=== PATIENT | female | born 1995 | race Caucasian/White ===

== ENCOUNTER → 2016-07-12 | Outpatient (CLI) | payer OTHER ==
[~2016-07-12] MED LIST: AMOXICILLIN500 MG PO; HYCODAN/HYDROMET5 ML PO; PREDNISONE10 MG PO; PROVENTIL0.09 MG/A1 INH
[2016-07-12 10:22] LABS: BASO % 0.4 % (0.0-1.0); EOS # 0.1 10*3/uL (0.0-0.4); EOS % 1.6 % (1.0-4.0); HEMATOCRIT 40.8 % (37.0-47.0); HEMOGLOBIN 13.7 g/dl (12.0-16.0); LYMPH # 2.1 10*3/uL (1.3-4.4); MEAN CELL VOLUME 91.1 fl (81.0-99.0); MEAN CORPUSCULAR HGB 30.6 pg (27.0-31.0); MEAN CORPUSCULAR HGB CONC 33.6 g/dl (33.0-37.0); MEAN PLATELET VOLUME 10.1 fl (9.6-12.3); MONO # 0.3 10*3/uL (0.1-1.0); MONO % 6.4 % (3.0-9.0); NEUT # 2.7 10*3/uL (2.3-7.9); NEUT % 51.4 % (47.0-73.0); PLATELET COUNT AUTOMATED 272 10*3/uL (130-400); RED BLOOD COUNT 4.48 10*6/uL (4.10-5.10); RED CELL DISTRI WIDTH 12.4 % (0-14.5); WHITE BLOOD COUNT 5.2 10*3/uL (4.8-10.8)
[2016-07-12 10:50] LABS: ALBUMIN 4.2 gm/dl (3.1-4.5); ALKALINE PHOSPHATASE 56 U/L (45-117); BILIRUBIN, TOTAL 0.5 mg/dl (0.2-1.0); BUN 12 mg/dl (7-24); CARBON DIOXIDE 28 mmol/L (21-32); CHLORIDE 108 mmol/L (98-107); CHOLESTEROL 175 mg/dL (<200); EST GLOM FILT AFRICAN AMERICAN > 60 ml/min; GLUCOSE 85 mg/dL (65-99); HDL CHOLESTEROL 58 mg/dl (40-60); LDL CHOLESTEROL 106 mg/dL (9-159); POTASSIUM 4.1 mmol/L (3.5-5.1); SGOT/AST 16 IU/L (3-35); SGPT/ALT 19 U/L (12-78); SODIUM 142 mmol/L (136-145); TOTAL PROTEIN 7.2 gm/dL (6.4-8.2); TRIGLYCERIDES 53 mg/dl (<150); VLDL CHOLESTEROL 11 mg/dL (6-40)
== END | disposition home or self-care (01) ==
LOC: LAB 10:05
PROVIDERS: Physician Assistant Medical
DX: Z13.220 Encounter for screening for lipoid disorders (principal); R53.83 Other fatigue

== ENCOUNTER → 2017-08-08 | Outpatient (CLI) | payer OTHER | END | disposition home or self-care (01) | LOC: CARD 07-31 07:30 | DX: Z34.92 Encounter for supervision of normal pregnancy, unspecified, second trimester (principal); R00.2 Palpitations; R06.02 Shortness of breath; F17.200 Nicotine dependence, unspecified, uncomplicated; Z3A.28 28 weeks gestation of pregnancy ==

== ENCOUNTER 2017-11-19 12:49 | Emergency (ER) | payer OTHER ==
[~2017-11-19] VITALS: Ht 152.4 cm; Wt 58.5 kg
[2017-11-19 12:55] VITALS: BP 101/88
[2017-11-19 13:28] LABS: BASO % 0.3 % (0.0-1.0); EOS # 0.1 10*3/uL (0.0-0.4); EOS % 2.8 % (1.0-4.0); HEMATOCRIT 40.7 % (37.0-47.0); HEMOGLOBIN 13.5 g/dl (12.0-16.0); LYMPH # 1.8 10*3/uL (1.3-4.4); LYMPH % 45.3 % (27.0-41.0); MEAN CELL VOLUME 92.7 fl (81.0-99.0); MEAN CORPUSCULAR HGB 30.8 pg (27.0-31.0); MEAN CORPUSCULAR HGB CONC 33.2 g/dl (33.0-37.0); MEAN PLATELET VOLUME 10.1 fl (9.6-12.3); MONO # 0.2 10*3/uL (0.1-1.0); MONO % 5.8 % (3.0-9.0); NEUT # 1.8 10*3/uL (2.3-7.9); NEUT % 45.5 % (47.0-73.0); PLATELET COUNT AUTOMATED 225 10*3/uL (130-400); RED BLOOD COUNT 4.39 10*6/uL (4.10-5.10); RED CELL DISTRI WIDTH 12.9 % (0-14.5)
[2017-11-19 13:46] LABS: ALBUMIN 3.9 gm/dl (3.1-4.5); ALKALINE PHOSPHATASE 283 U/L (45-117); BUN 10 mg/dl (7-24); CHLORIDE 108 mmol/L (98-107); CREATININE 0.79 mg/dL (0.55-1.02); POTASSIUM 4.3 mmol/L (3.5-5.1); SGOT/AST 113 IU/L (3-35); SGPT/ALT 300 U/L (12-78); SODIUM 141 mmol/L (136-145); TOTAL PROTEIN 7.3 gm/dL (6.4-8.2)
== END 2017-11-19 16:35 | disposition home or self-care (01) ==
LOC: ED 12:49
PROVIDERS: Emergency Medicine
DX: O90.89 Other complications of the puerperium, not elsewhere classified (principal); M79.1 Myalgia; R07.9 Chest pain, unspecified; O99.335 Smoking (tobacco) complicating the puerperium

== ENCOUNTER → 2017-12-18 | Outpatient (CLI) | payer OTHER ==
[~2017-12-18] MED LIST changes: +HYDROCODONE-AC1 EAC1 PO; +Zofran4 MG PO
== END | disposition home or self-care (01) ==
LOC: US 16:49
DX: K80.20 Calculus of gallbladder without cholecystitis without obstruction (principal); R11.0 Nausea

== ENCOUNTER 2018-01-14 16:30 | Emergency (ER) | payer OTHER ==
[~2018-01-14] VITALS: Ht 152.4 cm; Wt 59.0 kg
[~2018-01-14 16:30] MED LIST changes: -HYDROCODONE-AC1 EAC1 PO; -Zofran4 MG PO
[2018-01-14 16:38] VITALS: BP 122/60
[2018-01-14 17:49] LABS: BILIRUBIN 2+ (NEGATIVE); BLOOD NEGATIVE (NEGATIVE); CLARITY CLEAR (CLEAR); COLOR YELLOW (YELLOW); GLUCOSE NEGATIVE (NEGATIVE); KETONE NEGATIVE (NEGATIVE); LEUKO ESTERASE NEGATIVE (NEGATIVE); NITRITE NEGATIVE (NEGATIVE); PH 6.5 (5.0-9.0); SPECIFIC GRAVITY <= 1.005 (1.005-1.030); UROBILINOGEN 0.2 E.U./dl (0.2-1.0)
[2018-01-14 18:14] LABS: BACTERIA TRACE; EPITHELIAL CELLS 51-100
[2018-01-14 18:15] LABS: RBC 0-2 rbc/hpf (0-2); WBC 0-2 wbc/hpf (0-5)
[2018-01-14 19:29] LABS: BASO % 0.4 % (0.0-1.0); EOS # 0.1 10*3/uL (0.0-0.4); EOS % 1.2 % (1.0-4.0); HEMATOCRIT 37.8 % (37.0-47.0); HEMOGLOBIN 12.7 g/dl (12.0-16.0); LYMPH # 1.6 10*3/uL (1.3-4.4); MEAN CORPUSCULAR HGB 30.2 pg (27.0-31.0); MEAN CORPUSCULAR HGB CONC 33.6 g/dl (33.0-37.0); MEAN PLATELET VOLUME 10.1 fl (9.6-12.3); MONO # 0.4 10*3/uL (0.1-1.0); MONO % 7.2 % (3.0-9.0); PLATELET COUNT AUTOMATED 252 10*3/uL (130-400); RED CELL DISTRI WIDTH 12.8 % (0-14.5)
[2018-01-14 19:44] LABS: ALBUMIN 3.7 gm/dl (3.1-4.5); ALKALINE PHOSPHATASE 288 U/L (45-117); BUN 11 mg/dl (7-24); CHLORIDE 105 mmol/L (98-107); CREATININE 0.71 mg/dL (0.55-1.02); POTASSIUM 3.6 mmol/L (3.5-5.1); SGOT/AST 405 IU/L (3-35); SGPT/ALT 638 U/L (12-78); SODIUM 139 mmol/L (136-145); TOTAL PROTEIN 7.2 gm/dL (6.4-8.2)
[2018-01-14] MEDS ORDERED: Zofran4 MG PO (20:33)
== END 2018-01-14 21:10 | disposition home or self-care (01) ==
LOC: ED 16:30
PROVIDERS: Nurse Practitioner
DX: K81.9 Cholecystitis, unspecified (principal); R11.2 Nausea with vomiting, unspecified; F17.200 Nicotine dependence, unspecified, uncomplicated; Z79.899 Other long term (current) drug therapy

== ENCOUNTER 2018-01-20 07:02 | Inpatient (IN) | payer OTHER ==
[2018-01-15 12:04] LABS: BASO % 0.2 % (0.0-1.0); EOS # 0.1 10*3/uL (0.0-0.4); HEMATOCRIT 37.2 % (37.0-47.0); HEMOGLOBIN 12.5 g/dl (12.0-16.0); LYMPH # 1.7 10*3/uL (1.3-4.4); LYMPH % 28.4 % (27.0-41.0); MEAN CELL VOLUME 90.5 fl (81.0-99.0); MEAN CORPUSCULAR HGB 30.4 pg (27.0-31.0); MEAN CORPUSCULAR HGB CONC 33.6 g/dl (33.0-37.0); MEAN PLATELET VOLUME 10.4 fl (9.6-12.3); MONO # 0.3 10*3/uL (0.1-1.0); MONO % 5.1 % (3.0-9.0); NEUT # 3.8 10*3/uL (2.3-7.9); NEUT % 65.1 % (47.0-73.0); PLATELET COUNT AUTOMATED 275 10*3/uL (130-400); RED BLOOD COUNT 4.11 10*6/uL (4.10-5.10); RED CELL DISTRI WIDTH 12.9 % (0-14.5); WHITE BLOOD COUNT 5.9 10*3/uL (4.8-10.8)
[2018-01-20] VITALS (10 sets, daily range): BP systolic 112–126; BP diastolic 53–77
[~2018-01-20] VITALS: Ht 152.4 cm; Wt 58.1 kg
--- NOTE | ~2018-01-20 | O ---
[place], [place] OPERATIVE NOTE NAME: NICOLE FISHER UNIT #: [id number] ROOM: 404 DOCTOR: APRYL DAVIS MD BIRTHDATE: [birth year] DOS: 01/20/2018 PREOPERATIVE DIAGNOSES: Cholelithiasis, symptomatic colic, newly-elevated liver function test. POSTOPERATIVE DIAGNOSES: Cholelithiasis, symptomatic colic, newly-elevated liver function test. PROCEDURE: Laparoscopic cholecystectomy and intraoperative cholangiogram. SURGEON: Apryl Davis MD ANESTHESIA: General and local 0.5% Marcaine plain x 12 mL. INDICATIONS: This is a 22-year-old young lady presented to the office with symptomatic biliary colic, who is for elective cholecystectomy this morning. She had come for preadmission testing on 01/16/2018 and had blood work drawn, which showed liver function tests with marked elevation, with the patient having had no clinical jaundice, but having a normal bilirubin, but elevated liver function test and the AST in the 400s and alkaline phosphatase elevated as well. She subsequently had been seen in the Emergency Room on 01/14/2018 and has had an attack of colic, because of this, clinically, it was felt that she may have likely passed a stone. Her bilirubin on the 01/14/2018 was 3 with ALT 638, AST 405 and alkaline phosphatase 288. These have come down this morning to normal of bilirubin 0.5, AST of 27, ALT of 154 and alkaline phosphatase is 266. She had actually had slightly elevated liver function test in November 2017 as well with normal bilirubin, though this was not seen. She was seem to have multiple stones on ultrasound imaging and had had a normal sized common bile duct with no pericholecystic or wall thickening on ultrasound done roughly a month ago, at the time of her initial symptomatic onset. She had had some symptomatic complaints during and this was her first workup. was a term with delivery approximately 3 months ago. The patient is now for cholecystectomy today for symptomatic relief. Having discussed with the patient preoperatively with Dr. Galaviz and for possible ERCP postoperatively if cholangiogram so dictates. Risks, benefits, possible complications were discussed with the patient in the office at the bedside in preop area at length as well as discussing with her on Saturday the , when her liver function test had come back abnormal while was in preadmission testing area and the nurses gave me these result. All of her questions have been answered at length and she agrees to the informed consent. DESCRIPTION OF PROCEDURE: The patient was brought to the operating suite. She was placed on the table in supine position and adequate conscious sedation and general anesthetic was induced by the anesthesia staff. The abdomen was prepped and draped in a usual sterile fashion including placement of Cabrera catheter, orogastric [place] sump for bladder and gastric decompression. The abdomen was entered through a small infraumbilical incision carried bluntly to the rectus fascia. This was then cannulated with a Veress needle in the usual fashion. Intraperitoneal placement was confirmed and adequate pneumoperitoneum was created without difficulty. The abdomen was then cannulated with 5 mm bladeless [place], [place] OPERATIVE NOTE NAME: NICOLE FISHER UNIT #: [id number] ROOM: [facility] DOCTOR: APRYL DAVIS MD BIRTHDATE: [birth year] XL trocar with 0-degree laparoscope within. Intraperitoneal placement was confirmed. The patient was seen to have minimal adhesions in the gallbladder, but grossly appeared to have some dilation of the common bile duct, which was easily seen when lifting the liver after placing subxiphoid trocar through a second stab incision, under local anesthetic. The gallbladder was lifted and retracted upwards. Two right flank trocar was then placed in similar fashion under local anesthetic, infiltrated block through 5 mm stab incisions. The gallbladder was then elevated with the liver and retracted laterally. Dissection ensued in the triangle of Calot was easily skeletonized with clear view of the critical view of the cystic duct and the triangle of Calot. Attention was then directed to cholangiography. Fluoro cholangiography was performed with the patient in reverse Trendelenburg and slightly rotated away from the boiling tub operator on the patient's left side. Fluoro cholangiography shows the gallbladder to fill and the common bile duct to fill, but in spite of no obvious filling defects, it tapers nicely, but does not flow into the duodenum. Given that during dissection, it seems that the patient has multiple tiny stones and sediments, it is suspected that she may have passed a stone, especially given her previous episode of jaundice and elevated liver function tests. With this done, the gallbladder was decompressed and retracted and then the cystic duct divided between clips and incised and controlled at the cystic duct stump with an Endoloop of 3-0 Vicryl as well. Further dissection ensued and the cystic artery was isolated and divided between clips as well. The gallbladder was then skeletonized from the liver bed through a fairly tedious protracted dissection as it was somewhat intrahepatic. Once this was freed from the liver bed, it was placed in Endopouch specimen bag, having upsized the subxiphoid trocar to a 12 mm port site. There were multiple small stones spilled and these were collected postoperatively using a stone scoop inside the patient prior to including these with the specimen. The liver bed was inspected for hemostasis and this was treated with Marv topically. Drain was placed through one of the upper right flank trocar sites and placed under the liver to the subhepatic space. It was secured with 3-0 nylon in the skin. No further pathology. Pneumoperitoneum was released and the specimen removed in the Endopouch bag through the subxiphoid trocar site. Fascia here was closed with a [id number] suture of 2-0 PDS. Then, pneumoperitoneum was released and suctioned out. A drain was placed to gravity drainage. The skin incision was then closed with 5-0 Monocryl and Duramax. She was allowed to awaken in the room and extubated without difficulty. The patient tolerated the procedure well. She went to recovery in satisfactory condition. All sponge, needle and instrument counts correct at the end of the procedure. She received antibiotic prophylaxis preoperatively and had compression devices to lower extremities for DVT prophylaxis. We will keep her overnight and I had already discussed possible ERCP with Dr. Galaviz, we will notify him of consultation. [place], [place] OPERATIVE NOTE NAME: NICOLE FISHER UNIT #: [id number] ROOM: 404 DOCTOR: APRYL DAVIS MD BIRTHDATE: [birth year] APRYL DAVIS MD CM:OPRECORD:OPERATIVE NOTE 1430 [id number] ARJUN DAVIS MD 01/20/18 1545 interface
[~2018-01-20 07:02] MED LIST changes: +Zofran4 MG PO
[2018-01-20 07:24] LABS: BASO % 0.4 % (0.0-1.0); EOS # 0.1 10*3/uL (0.0-0.4); EOS % 1.4 % (1.0-4.0); HEMOGLOBIN 12.8 g/dl (12.0-16.0); LYMPH # 1.6 10*3/uL (1.3-4.4); LYMPH % 32.2 % (27.0-41.0); MEAN CELL VOLUME 91.3 fl (81.0-99.0); MEAN CORPUSCULAR HGB 30.8 pg (27.0-31.0); MEAN CORPUSCULAR HGB CONC 33.7 g/dl (33.0-37.0); MEAN PLATELET VOLUME 9.8 fl (9.6-12.3); MONO # 0.3 10*3/uL (0.1-1.0); MONO % 6.7 % (3.0-9.0); NEUT % 59.1 % (47.0-73.0); PLATELET COUNT AUTOMATED 322 10*3/uL (130-400); RED BLOOD COUNT 4.16 10*6/uL (4.10-5.10); RED CELL DISTRI WIDTH 12.7 % (0-14.5); WHITE BLOOD COUNT 5.1 10*3/uL (4.8-10.8)
[2018-01-20 07:38] LABS: ALBUMIN 3.8 gm/dl (3.1-4.5); ALKALINE PHOSPHATASE 266 U/L (45-117); BUN 10 mg/dl (7-24); CHLORIDE 107 mmol/L (98-107); CREATININE 0.79 mg/dL (0.55-1.02); POTASSIUM 3.8 mmol/L (3.5-5.1); SGOT/AST 27 IU/L (3-35); SGPT/ALT 154 U/L (12-78); SODIUM 141 mmol/L (136-145); TOTAL PROTEIN 7.3 gm/dL (6.4-8.2)
[2018-01-21] VITALS: BP 110/64
[2018-01-21 04:00] VITALS: BP 102/60
[2018-01-21 07:04] LABS: BILIRUBIN, DIRECT 0.2 mg/dL (0.0-0.2); TOTAL PROTEIN 5.5 gm/dL (6.4-8.2)
[2018-01-21 08:00] VITALS: BP 103/52
[2018-01-21 12:00] VITALS: BP 108/58
[2018-01-21] MEDS ORDERED: HYDROCODONE-AC1 EAC1 PO (12:49)
== END 2018-01-21 13:55 | disposition home or self-care (01) | DRG 419 ==
LOC: SDC 07:02 → 4E 09:55
PROVIDERS: Internal Medicine Gastroenterology
DX: K80.10 Calculus of gallbladder with chronic cholecystitis without obstruction (principal); G89.18 Other acute postprocedural pain; R74.0 Nonspecific elevation of levels of transaminase and lactic acid dehydrogenase [LDH]; F17.200 Nicotine dependence, unspecified, uncomplicated; Z71.6 Tobacco abuse counseling; Z98.891 History of uterine scar from previous surgery; Z79.899 Other long term (current) drug therapy; Z79.51 Long term (current) use of inhaled steroids

== ENCOUNTER → 2019-01-14 | Outpatient (CLI) | payer OTHER ==
[~2019-01-14] MED LIST changes: +HYDROCODONE-AC1 EAC1 PO
== END | disposition home or self-care (01) ==
LOC: US 15:00
DX: Z34.81 Encounter for supervision of other normal pregnancy, first trimester (principal); Z3A.01 Less than 8 weeks gestation of pregnancy

== ENCOUNTER → 2019-02-11 | Outpatient (CLI) | payer OTHER | END | disposition home or self-care (01) | LOC: US 12:57 | DX: Z34.81 Encounter for supervision of other normal pregnancy, first trimester (principal); Z3A.01 Less than 8 weeks gestation of pregnancy ==

== ENCOUNTER → 2019-02-23 | Outpatient (CLI) | payer OTHER | END | disposition home or self-care (01) | LOC: LAB 16:25 | DX: N93.9 Abnormal uterine and vaginal bleeding, unspecified (principal) ==

== ENCOUNTER → 2019-03-02 | Outpatient (CLI) | payer OTHER | END | disposition home or self-care (01) | LOC: LAB 15:50 | DX: O08.89 Other complications following an ectopic and molar pregnancy (principal); Z3A.14 14 weeks gestation of pregnancy ==

== ENCOUNTER → 2019-03-09 | Outpatient (CLI) | payer OTHER | END | disposition home or self-care (01) | LOC: LAB 17:36 | DX: O08.89 Other complications following an ectopic and molar pregnancy (principal) ==

== ENCOUNTER → 2019-03-16 | Outpatient (CLI) | payer OTHER | LOC: LAB 15:50 | DX: O08.89 Other complications following an ectopic and molar pregnancy (principal) ==

== ENCOUNTER → 2019-03-23 | Outpatient (CLI) | payer BC, OTHER | END | disposition home or self-care (01) | LOC: LAB 17:28 | DX: O08.89 Other complications following an ectopic and molar pregnancy (principal) ==

== ENCOUNTER → 2019-03-30 | Outpatient (CLI) | payer BC, OTHER | END | disposition home or self-care (01) | LOC: LAB 16:51 | DX: O08.89 Other complications following an ectopic and molar pregnancy (principal) ==

== ENCOUNTER → 2019-04-06 | Outpatient (CLI) | payer BC, OTHER | END | disposition home or self-care (01) | LOC: LAB 16:41 | DX: O08.89 Other complications following an ectopic and molar pregnancy (principal) ==

== ENCOUNTER → 2019-05-08 | Outpatient (CLI) | payer BC, OTHER | END | disposition home or self-care (01) | LOC: LAB 16:23 | DX: O08.89 Other complications following an ectopic and molar pregnancy (principal) ==

== ENCOUNTER → 2019-09-24 | Outpatient (CLI) | payer BC, OTHER | END | disposition home or self-care (01) | LOC: US 16:20 | DX: O02.81 Inappropriate change in quantitative human chorionic gonadotropin (hCG) in early pregnancy (principal); Z3A.01 Less than 8 weeks gestation of pregnancy ==

== ENCOUNTER → 2019-10-01 | Outpatient (CLI) | payer BC, OTHER | END | disposition home or self-care (01) | LOC: US 11:30 | DX: N93.9 Abnormal uterine and vaginal bleeding, unspecified (principal) ==

== ENCOUNTER → 2019-10-08 | Outpatient (CLI) | payer BC, OTHER | END | disposition home or self-care (01) | LOC: US 10-05 09:00 | DX: Z34.81 Encounter for supervision of other normal pregnancy, first trimester (principal); Z3A.01 Less than 8 weeks gestation of pregnancy ==

== ENCOUNTER → 2019-11-09 | Outpatient (CLI) | payer BC, OTHER ==
[2019-11-09 17:08] LABS: BASO % 0.2 % (0.0-1.0); EOS # 0.1 10*3/uL (0.0-0.4); EOS % 0.6 % (1.0-4.0); HEMATOCRIT 37.5 % (37.0-47.0); LYMPH # 2.3 10*3/uL (1.3-4.4); LYMPH % 22.5 % (27.0-41.0); MEAN CORPUSCULAR HGB 30.3 pg (27.0-31.0); MEAN CORPUSCULAR HGB CONC 33.3 g/dl (33.0-37.0); MEAN PLATELET VOLUME 9.9 fl (9.6-12.3); MONO # 0.4 10*3/uL (0.1-1.0); MONO % 4.1 % (3.0-9.0); NEUT # 7.4 10*3/uL (2.3-7.9); NEUT % 72.2 % (47.0-73.0); PLATELET COUNT AUTOMATED 310 10*3/uL (130-400); RED BLOOD COUNT 4.12 10*6/uL (4.10-5.10); RED CELL DISTRI WIDTH 12.6 % (0-14.5); WHITE BLOOD COUNT 10.2 10*3/uL (4.8-10.8)
[2019-11-09 17:24] LABS: URINE AMPHETAMINES < 1000 (1000ng/ml); URINE BARBITURATES < 200 (200ng/ml); URINE BENZODIAZEPINES < 200 (200ng/ml); URINE CANNABINOIDS (THC) < 50 (50ng/ml); URINE COCAINE < 300 (300ng/ml); URINE METHADONE < 300 (300ng/ml); URINE OPIATES < 300 (300ng/ml); URINE PHENCYCLIDINE < 25 (25ng/ml)
[2019-11-10 08:08] LABS: HEP B CORE AB, IGM Negative (Negative); HEPATITIS B SURFACE AG Negative (Negative); HEPATITIS C VIRUS ANTIBODY <0.1 s/co (0.0-0.9)
== END | disposition home or self-care (01) ==
LOC: LAB 16:33
PROVIDERS: Nurse Practitioner Women's Health
DX: Z34.81 Encounter for supervision of other normal pregnancy, first trimester (principal); Z3A.11 11 weeks gestation of pregnancy

== ENCOUNTER → 2019-12-24 | Outpatient (CLI) | payer BC, OTHER | LOC: US 14:54 | PROVIDERS: ATTEND Obstetrics & Gynecology | DX: Z34.82 Encounter for supervision of other normal pregnancy, second trimester (principal); Z3A.14 14 weeks gestation of pregnancy ==

== ENCOUNTER → 2020-04-01 | Outpatient (CLI) | payer BC, OTHER | END | disposition home or self-care (01) | LOC: US 13:30 | PROVIDERS: ATTEND Nurse Practitioner Women's Health | DX: Z34.83 Encounter for supervision of other normal pregnancy, third trimester (principal); Z3A.31 31 weeks gestation of pregnancy ==

== ENCOUNTER → 2020-05-09 | Outpatient (CLI) | payer OTHER | END | disposition home or self-care (01) | LOC: COVID19 13:37 | PROVIDERS: ATTEND Obstetrics & Gynecology | DX: Z11.52 Encounter for screening for COVID-19 (principal) ==